=== PATIENT | male | born 1990 | race Caucasian/White ===

== ENCOUNTER → 2016-03-28 | Outpatient (CLI) | payer OTHER ==
--- NOTE | 2016-03-28 19:13 | DIAGNOSTIC IMAGING REPORT ---
PROCEDURE: MR LOWER EXT JOINT WO CONT-RT INDICATION: PAINFUL SNAPPING IN RT ANKLE AFTER ANKLE SPRAIN TECHNIQUE: T1 and STIR sagittal, axial, coronal and coronal-oblique images. COMPARISON: None. FINDINGS: The peroneus brevis and tendons are intact but there is minor surrounding edema suggestive of tenosynovitis. Flexor hallucis longus, posterior tibialis and flexor digitorum longus tendons are intact. Normal extensor tendons. The tibiofibular, anterior and posterior talofibular, calcaneofibular and deltoid ligaments are intact. Normal Achilles tendon and plantar fascia. Normal sinus tarsi. Osseous structures are unremarkable. IMPRESSION: 1. Mild tenosynovitis primarily around the peroneus brevis tendon
== END ==
LOC: MRI SRH 16:03
DX: M65.871 Other synovitis and tenosynovitis, right ankle and foot (principal)